=== PATIENT | male | born 1945 | race Caucasian/White ===

== ENCOUNTER 2020-07-29 00:36 | Emergency (ER) | payer MEDICARE, OTHER ==
[2020-07-29] MEDS ORDERED: SULF1TAB24 PO (01:17)
[2020-07-29] MEDS ORDERED: CEPH-264 PO (01:17)
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
[2020-07-29 01:37] VITALS: BP 142/68
== END 2020-07-29 01:28 | disposition left against medical advice (07) ==
LOC: ER 00:36
DX: L03.113 Cellulitis of right upper limb (principal); R00.0 Tachycardia, unspecified; R50.9 Fever, unspecified; I11.0 Hypertensive heart disease with heart failure; I50.9 Heart failure, unspecified; Z86.73 Personal history of transient ischemic attack (TIA), and cerebral infarction without residual deficits
CPT/HCPCS: 99283

== ENCOUNTER 2021-02-10 23:11 | Emergency (ER) | payer MEDICARE, OTHER ==
[~2021-02-10] VITALS: Ht 170.2 cm; Wt 76.0 kg
[~2021-02-10 23:11] MED LIST: CEPH-264 PO; SULF1TAB24 PO
[2021-02-10] MEDS ORDERED: SULF1TAB24 PO (23:44)
[2021-02-10] MEDS ORDERED: CEPH500C PO (23:44)
--- NOTE | 2021-02-10 23:44 | PHYS DOC ---
General Adult EDM: Chief Complaint: INSECT BITE HPI: HPI: Patient is a 75-year-old male coming in for erythema and redness with draining to his posterior right thigh. Patient states has been getting worse over the past week. Was sitting in the bathtub today because it was draining to help drain. Started taking amoxicillin given to him by a friend, had to dose yesterday 2 doses today. Denies any systemic complaints. Past medical history for for stroke, denies any history of diabetes. Patient states he thinks he was bit by a bug or spider but did not see it. Denies any history of recurrent abscesses or MRSA. Review of Systems: Review of Systems: All other systems within normal limits except for as noted in the HPI Current Medications: Current Meds: Current Medications Medications (Trade) Dose Ordered Sig/Faizan Start Time Stop Time Status Last Admin Dose Admin Cephalexin HCl (Keflex) 500 mg 1X ONCE 02/10/21 23:30 3 23:31 UNV Trimethoprim/ Sulfamethoxazole (Bactrim Ds) 1 tab 1X ONCE 02/10/21 23:30 02/10/21 23:31 UNV Physical Exam: PE: Constitutional: Well developed, well nourished, no acute distress, non-toxic appearance. [] HENT: Normocephalic, atraumatic, bilateral external ears normal, nose normal. [] Eyes: PERRLA, conjunctiva normal, no discharge. [] Neck: No rigidity, supple, no stridor. [] Cardiovascular: Regular rate and rhythm, brisk cap refill [] Lungs & Thorax: Non labored symmetric respirations, no tachypnea or respiratory distress [] Abdomen: Soft, nondistended. Skin: Proximally 10 to 12 cm diameter area of induration with further surrounding area of redness, no palpable abscess or drainage. [] Back: Unremarkable Extremities: No deformities, range of motion grossly intact, no lower extremity edema [] Neurologic: Alert and oriented X 3, no focal deficits noted. [] Psychologic: Affect normal, judgement normal, mood normal. [] Current Patient Data: Labs: Laboratory Tests Test 02/10/21 23:30 Glucose (Fingerstick) 89 mg/dL (70-99) EKG: EKG: [] Radiology/Procedures: Radiology/Procedures: [] Heart Score: C/O Chest Pain: No Risk Factors: Risk Factors: DM, Current or recent (<one month) smoker, HTN, HLP, family history of CAD, obesity. Risk Scores: Score 0 - 3: 2.5% MACE over next 6 weeks - Discharge Home Score 4 - 6: 20.3% MACE over next 6 weeks - Admit for Clinical Observation Score 7 - 10: 72.7% MACE over next 6 weeks - Early Invasive Strategies Course & Med Decision Making: Course & Med Decision Making Blood sugar normal, vital signs stable no signs of SIRS or sepsis. Discussed with patient will try outpatient treatment and luz elena a marker line around the current area of cellulitis with return precautions to return if not getting better or starting spiking fevers. Patient and daughter agree to plan. First dose of antibiotics given the emergency department. Robbin Disclaimer: Robbin Disclaimer: This electronic medical record was generated, in whole or in part, using a voice recognition dictation system. Departure Departure: Impression: Primary Impression: Cellulitis of right thigh Disposition: 01 DC HOME SELF CARE/HOMELESS Condition: STABLE Referrals: PCP,UNKNOWN (PCP) Patient Instructions: Cellulitis Additional Instructions: Return to emergency department if cellulitis not responding to antibiotics in 24 to 48 hours. If you start spiking fevers greater than 101 or unable to tolerate your medications. Take antibiotics as prescribed and complete antibiotic prescription. May take ibuprofen and Tylenol for pain. Continue to do sits baths to facilitate any drainage from the infected area. Scripts Sulfamethoxazole/Trimethoprim (BACTRIM DS TABLET) 1 Each Tablet 1 TAB PO BID for antibiotic for 7 Days, #14 TAB 0 Refills Prov: PHAN OLIVARES MD 02/10/21 Cephalexin (CEPHALEXIN) 500 Mg Capsule 1 CAP PO TID for antibiotic for 7 Days, #21 CAP Prov: PHAN OLIVARES MD 02/10/21 PHAN OLIVARES MD Feb 10, 2021 23:44
[2021-02-11] MEDS: SMZ/TMP 800/160MG TABLET. PO ONE (00:14)
[2021-02-11] MEDS: CEPHALEXIN 250 MG CAPSULE PO ONE (00:14)
[2021-02-11 00:20] VITALS: BP 129/61
== END 2021-02-11 00:20 | disposition home or self-care (01) ==
LOC: ER 23:11
DX: L03.115 Cellulitis of right lower limb (principal)
CPT/HCPCS: 82947; 99284